=== PATIENT | female | born 1990 | race Hispanic/Latino ===

== ENCOUNTER 2018-01-12 02:00 | Emergency (ER) | payer MEDICAID ==
--- NOTE | 2018-01-12 03:12 | OBHP ---
Datetime: 01/12/2018 02:58 IP Adm Impression: Term, intrauterine ; No Active Labor; Intact Membranes IP Admit Plan: Discharge home Admit Comment, IP Provider: Thisis a private patient of Dr. Michael 27 y.o. , LMP unsure, HAYDE 01/18/18, EGA 39w 1d c/o vaginal pressure since 1800 hours. (+) AFM; denies LOF, VB, Ctx. Last had sezual intercourse 1 week ago. care: Dr. Michael; last visit 01/08; next visit 01/15. 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 Denies STIs, abnrmal Pap, ovarian cysts, myomata PMH: denies PSH: denies NKDA Meds: PNV Soc Hx: denies tobacco, illicit drug or EtOH use. x 7 years. 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 Mat aunt - skin cancer P.E.: as above. WD IN NAD. Awake, alert, oriented to time, person and place. Pleasant and coopera tive. Accompained by Assessment: 27 y.o. P1, 39w 1d, not in labor. Category 1 traicng. Clinically stable. Plan 1) Discharge home 2) Reviewed S/S labor 3) Keep all schaduled appointments, next one 01/15/18 - as per, and D/W, Dr. Michael Pelvic Type - PN: Adequate Extremities - PN: Normal Abdomen - PN: Normal Back - PN: Normal Breast - PN: Normal Lungs - PN: Normal Heart - PN: Normal Thyroid - PN: Not Done Neurologic - PN: Normal HEENT - PN: Normal General - PN: Normal Weight - Estimated: 8lb Presentation-Admit: Vertex FHR - Baseline A Provider: 140 Contraction Comments Provider: 7-10 minutes Comments, ACOG Physical Exam: Abdomen: Gravid. Soft. non tender. Fundal height 39 cm All other systems reviewed and are negative Gestation - Est Wks by US: 39w 1d EGA AdmitDate IP: 39.1 Vital Signs Provider: Reviewed; Within Normal Limits IP Chief Complaint: Uterine contractions NICHD Variability Prov Fetus A: Moderate 6-25bpm NICHD Accel Fetus A IP Provider: 15X15 FHR Category Provider Fetus A: Category I NICHD Decel Fetus A IP Provider: None Dilatation, Provider: 2 Effacement, Provider: 30 Station, Provider: -3 Genitourinary Exam: Normal DTRs - PN: Not Done
[2018-01-12 07:16] VITALS: BP 126/87; PULSE 72; TEMP 96.7
== END 2018-01-12 03:10 | disposition home or self-care (01) ==
LOC: C.EROB 02:00
DX: O47.1 False labor at or after 37 completed weeks of gestation (principal); Z3A.39 39 weeks gestation of pregnancy

== ENCOUNTER 2018-01-15 15:12 | Inpatient (IN) | payer MEDICAID ==
[2018-01-15 15:33] VITALS: BMI 31.4
[2018-01-15] MEDS ORDERED: Lactated Ringer's 1,000 ML IV SCH (16:00)
[2018-01-15 16:29] LABS: BASO % 0.3 % (0.0-2.0); EOS # 0.1 K/uL (0.0-0.7); EOS % 0.7 % (0.0-4.0); HEMOGLOBIN 11.6 g/dL (11.0-16.0); LYMPH # 2.2 K/uL (1.0-4.3); LYMPH % 19.9 % (20.0-40.0); MEAN CELL VOLUME 91.3 fL (81.0-99.0); MEAN CORPUSCULAR HEMOGLOBIN 31.6 pg (27.0-31.0); MEAN CORPUSCULAR HGB CONC 34.6 g/dL (33.0-37.0); MEAN PLATELET VOLUME 10.2 fL (7.2-11.7); MONO # 0.5 K/uL (0.0-0.8); MONO % 4.6 % (0.0-10.0); NEUT % 74.5 % (50.0-75.0); RBC 3.66 Mil/uL (3.80-5.20); RED CELL DISTRIBUTION WIDTH 13.7 % (11.5-14.5); WHITE BLOOD COUNT 10.8 K/uL (4.8-10.8)
[2018-01-15 16:34] LABS: SQUAMOUS EPITHIAL 2 /hpf (0-5); URINE BACTERIA RARE (<OCC); URINE BILIRUBIN NEGATIVE (NEGATIVE); URINE BLOOD 3+ (NEGATIVE); URINE CLARITY Clear (Clear); URINE COLOR Straw (YELLOW); URINE GLUCOSE (UA) NORMAL (Normal); URINE LEUKOCYTE ESTERASE TRACE Leu/uL (Negative); URINE PROTEIN NEGATIVE (NEGATIVE); URINE UROBILINOGEN NORMAL mg/dL (0.2-1.0)
[2018-01-15 16:38] LABS: INR 0.9; PROTHROMBIN TIME 10.2 SECONDS (9.7-12.2)
[2018-01-15] MEDS ORDERED: Oxytocin 30 UNIT 30 UNITS/500 ML BAG IV ONE ×2 (16:46→16:47)
[2018-01-15 16:53] LABS: ALB/GLOB RATIO 1.1 (1.0-2.1); ALBUMIN 3.6 g/dL (3.5-5.0); ALT/SGPT 21 U/L (9-52); AST/SGOT 23 U/L (14-36); BLOOD UREA NITROGEN 8 mg/dL (7-17); CALCIUM 9.4 mg/dl (8.6-10.4); GFR NON-AFRICAN AMERICAN > 60; URIC ACID 6.2 mg/dL (2.2-7.5)
--- NOTE | 2018-01-15 16:58 | OBADHP ---
Datetime: 01/15/2018 16:00 IP Adm Impression Other: Elevated BP reading (in office); early labor Admit Comment, IP Provider: This a pprivate patietn of Dr. Michael 30 y.o. P1, LMP unsure; HAYDE 01/18/18, EGA 39w 4d. referred by PMD for evaluation of elevated BPs. S een in office earlier this afternoon: BP 146/96. Patient denies headaches, blurred vision, spots; RU Q or epigastric pain. Denies generalized swelling. (+) AFM; denies LOF, VB. Ctx. Passing mucous plug since 01/11/18. care: Dr. Michael. Denies any issues. 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 Denies STIs, abnrmal Pap, ovarian cysts, myomata PMH: denies PSH: denies NKDA Meds: PNV Soc Hx: denies tobacco, illicit drug or EtOH use. x 7 years. 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 Mat aunt - skin cancer P.E.: as above. WD IN NAD. Awake, alert, oriented to time, person and place. Pleasant and coopera tive. Assessment: 30 y.o. P1, 39w 4d - R/O pre-eclampsia. First 2 BPs - wnl. Category 1 tracing. Clinica lly stable. Plan: 1) Pre-eclamptic labs 2) Observe - as per and D/W Dr. Michael Addendum: - D/W Dr. Michael, BP readings: in light of labile nature of BP will admit for delivery Assessment: 27 y.o. P1, 39w 4d, labile BP for delivery. D/W patient pitocin augmentaiton. Also dis cussed pain management options; patient receptive to epidural when needed. Category 1 tracing. Clinic ally stable. Plan: 1) Admit 2) NPO 3) IVFs 4) Complete admission labs 5) Continous EFM 6) Pitocin 7) Will initiate magnesiumsulphate for seizure prophylaxis if indicated 8) Anticipate vaginal delivery - as per, and D/W, D.r Musha Pelvic Type - PN: Not Done Extremities - PN: Normal Abdomen - PN: Normal Back - PN: Normal Breast - PN: Not Done Lungs - PN: Normal Heart - PN: Normal Thyroid - PN: Not Done Neurologic - PN: Normal HEENT - PN: Normal General - PN: Normal Presentation-Admit: Vertex FHR - Baseline A Provider: 145 Contraction Comments Provider: 8-10 Comments, ACOG Physical Exam: Abdomen: no tender in all quadrants. Soft Gravid. Fundal height Extremities: no calf tenderness All other systems reviewed and are negative Gestation - Est Wks by US: 39w 4d IP Hx Assessment: The History has been Reviewed and is Current Vital Signs Provider: Reviewed Vital Signs Provider Details: and noted [id number] IP Chief Complaint: Signs/Symptoms Gestational HTN NICHD Variability Prov Fetus A: Moderate 6-25bpm NICHD Accel Fetus A IP Provider: 10X10 FHR Category Provider Fetus A: Category I NICHD Decel Fetus A IP Provider: None Dilatation, Provider: deferred Genitourinary Exam: Normal DTRs - PN: Normal EGA AdmitDate IP: 39.4 IP Adm Impression: Term, intrauterine ; Intact Membranes IP Admit Plan: Admit to unit; Initiate labor augmentation protocol Datetime: 01/12/2018 02:58 Weight - Estimated: 8lb Effacement, Provider: 30 Station, Provider: -3
--- NOTE | 2018-01-15 20:04 | OBPN ---
Datetime: 01/15/2018 19:51 IP Progress Impression: Normal progression of labor IP Procedures: Sterile Vag Exam IP Progress Plan: Continue present management; Augmentation; Anesthesia consult; Anticipate Vaginal Delivery Membranes, Provider: Intact Contraction Comments Provider: 2 minutes FHR - Baseline A Provider: 135 Gestation - Est Wks by US: 39w 4d Presentation-Admit: Vertex IP Progress Note Comment: Patient received in LDR #1; pain scale 7/10. Denies headaches, blurred vis ion, spots Cervical exam: as above. Pitocon = 10 mUnits Assessment: 27 y.o. P1, 39w 4d, labile BP readings on pitocin, in active labor. Labs wnl. Category 1 tracing. Patint remainss asymptomatic; no stigmata of pre-eclampsia. Patient desires epidural at t his time. Clinically stable. Plan: 1) epidural 2) continue present management 3) Anticipate vaginal delivery - Dr. Michael aware Vital Signs Provider: Reviewed Vital Signs Provider Details: 165/103 noted; repeat 133/98 NICHD Accel Fetus A IP Provider: 15X15 FHR Category Provider Fetus A: Category I NICHD Variability Prov Fetus A: Absent - Undetectable Dilatation, Provider: 6 Effacement, Provider: 80 Station, Provider: -2 NICHD Decel Fetus A IP Provider: None Datetime: 01/12/2018 02:58 Weight - Estimated: 8lb
[2018-01-15] MEDS ORDERED: Bupivacaine HCl/FentaNYL Cit 100 ML EPI ONE (20:28)
[2018-01-15] MEDS ORDERED: Oxycodone/Acetaminophen 5/325 mg Tab PO PRN (21:36)
--- NOTE | 2018-01-16 07:08 | HP ---
HISTORY OF PRESENT ILLNESS: The patient is a 27-year-old female, 2, para 1 with a due date of 01/18/2018, at 39-weeks by dates, came in with contractions since 2 p.m. today. She denies any leakage of fluid. She denies any vaginal bleeding. The patient has been noted to have elevated blood pressures in the office today but on presentation in the hospital, blood pressures were normal with normal PIH labs. PAST MEDICAL HISTORY: Unremarkable. SOCIAL HISTORY: She does not smoke or drink. MEDICATIONS: Currently, she is not taking any calcium or airborne medications. PHYSICAL EXAMINATION: VITAL SIGNS: Blood pressure is 110/70, pulse is 72, respiratory rate is 20, temperature is 98.8. HEENT: Head, ears, eyes, nose, and throat examination within normal. CHEST: Clear. CARDIAC: Reveals normal heart sounds without any murmurs. LUNGS: Clear. BREASTS: Reveal no masses. ABDOMEN: Soft. Symphysis-fundal height is 38 cm, longitudinal lie vertex. heart tones are normal. PELVIC: She has a normal vulva. Bartholin, urethral, and [place]'s glands are within normal. Cervix is 10 cm, station -2. Clear fluid. ADMITTING DIAGNOSIS: At this point, intrauterine at 39 weeks, in active labor. PLAN: Plan is to anticipate in normal spontaneous vaginal delivery. Prior to being scheduled for the surgical procedure, the patient underwent an informed consent, discussion, and education session with me in the office and in the hospital lasting approximately 45 minutes during which time I explained to her in understandable terms the following: The nature and extent of the disease process, the nature and extent of the contemplated operation. I have also explained to her the risks and potential complications of the operative procedures to include but not limited to infection, hemorrhage, deep vein thrombosis, atelectasis, pneumonia, pulmonary embolism, damage to the bladder, damage to the ureter, renal insufficiency, renal failure, wound infection, wound dehiscence, incisional hernia, keloid formation, damage to large and small intestines, damage to the inferior vena cava and aorta requiring extensive repair, anesthesia complications, electrolyte imbalance, possibility of , fluid overload, cerebral edema, embolism, and other complications that were discussed but are not listed above. I have also discussed with the patient the anticipated benefits and results of the surgery including a conservative estimate of the successful outcome. I discussed with the patient the operation would not accomplish. I informed the patient of the possibility of unanticipated pathology, requiring more extensive procedure. All the questions from the patient were encouraged, welcomed, and answered to her satisfaction. The patient had been given the opportunity to store her own blood for use and autologous blood transfusion prenatally and she had declined. Sean Torres MD
[2018-01-16 08:48] LABS: BASO % 0.3 % (0.0-2.0); EOS % 0.3 % (0.0-4.0); HEMOGLOBIN 10.9 g/dL (11.0-16.0); LYMPH # 1.8 K/uL (1.0-4.3); MEAN CELL VOLUME 90.3 fL (81.0-99.0); MEAN CORPUSCULAR HEMOGLOBIN 31.5 pg (27.0-31.0); MEAN CORPUSCULAR HGB CONC 34.9 g/dL (33.0-37.0); MEAN PLATELET VOLUME 9.9 fL (7.2-11.7); MONO # 0.6 K/uL (0.0-0.8); MONO % 4.7 % (0.0-10.0); NEUT # 9.7 K/uL (1.8-7.0); NEUT % 79.7 % (50.0-75.0); RBC 3.45 Mil/uL (3.80-5.20); RED CELL DISTRIBUTION WIDTH 13.8 % (11.5-14.5); WHITE BLOOD COUNT 12.2 K/uL (4.8-10.8)
--- NOTE | 2018-01-16 13:49 | PN ---
DATE: 01/16/2018 SUBJECTIVE: The patient has no complaints. PHYSICAL EXAMINATION: VITAL SIGNS: Stable. She is afebrile. ABDOMEN: Fundus is firm. Lochia is scant. BREASTS: Reveal no masses. EXTREMITIES: Nontender with no evidence of DVT. Homans sign is negative. ASSESSMENT: The patient is status post normal spontaneous vaginal delivery day #1. PLAN: To ambulate the patient and advance diet as tolerated. Anticipate discharge home tomorrow morning. Sean Torres MD
[2018-01-17 01:32] VITALS: RESP 20
[2018-01-17 19:20] VITALS: BP 118/64; PULSE 91; TEMP 98.4; O2SAT 100
== END 2018-01-17 14:30 | disposition home or self-care (01) | DRG 372 ==
LOC: C.EROB 15:12 → C.4D 15:39 → C.4M 23:35
PROVIDERS: ADMIT Obstetrics & Gynecology Reproductive Endocrinology; ATTEND Obstetrics & Gynecology Reproductive Endocrinology
PROC: 10E0XZZ Delivery of Products of Conception, External Approach (ICD-10-PCS; principal; 2018-01-15)
DX: O13.4 Gestational [pregnancy-induced] hypertension without significant proteinuria, complicating childbirth (principal); Z3A.39 39 weeks gestation of pregnancy; Z37.0 Single live birth